=== PATIENT | female | born 1955 | race Two or more races ===

== ENCOUNTER 2016-09-23 08:51 | Day surgery (SDC) | payer OTHER ==
[2016-09-20 15:14] VITALS: BMI 32.2
[2016-09-23] VITALS (11 sets, daily range): BP systolic 108–145; BP diastolic 54–71; PULSE 60–93; RESP 15–22; Ht 157.5 cm; Wt 75.7 kg
[~2016-09-23] VITALS: Ht 157.5 cm; Wt 75.7 kg
[~2016-09-23 08:51] MED LIST: BUPIVACAINE 0.25% (MPF) 30 ML INJ INJ ONE; CEFAZOLIN 1 GM INJ ONE; CEFAZOLIN 2 GM/50 ML (PMX) 50 ML IVPB SCH; SOD CHLORIDE 0.9% 1,000 ML IV SCH
[2016-09-23] MEDS ORDERED: LISI10TA2 PO (09:35)
[2016-09-23] MEDS ORDERED: TERB250T46 PO (09:36)
[2016-09-23] MEDS ORDERED: AMIT25TA9 PO (09:36)
[2016-09-23] MEDS ORDERED: NITR0.4T6 SL (09:37)
[2016-09-23] MEDS ORDERED: ROCURONIUM 50 MG INJ ONE (11:26)
[2016-09-23] MEDS ORDERED: PROPOFOL 20 ML ONE (11:26)
[2016-09-23] MEDS ORDERED: ROPIVACAINE 0.5 % 30 ML VIAL ONE (11:27)
[2016-09-23] MEDS ORDERED: MIDAZOLAM 1 MG/ML 2 ML INJ ONE (11:27)
[2016-09-23] MEDS ORDERED: FENTAnyl 50 MCG/ML VIAL ONE (11:27)
--- NOTE | 2016-09-23 11:43 | RADRPT ---
PROCEDURE: Chest 1 views. CLINICAL INDICATION: Shortness of breath. TECHNIQUE: AP views of the chest was obtained. COMPARISON: None. FINDINGS: The heart is large. The lungs are hyperexpanded. Minimal elevation of the right hemidiaphragm is ob served. No consolidations are identified. No pneumothorax is seen. Calcified granulomas are seen in the left upper lobe. Osseous structures are intact. IMPRESSION: Cardiomegaly . Mild elevation of the right hemidiaphragm. Hyperexpanded lungs. Calcified granulomatous disease in the left upper lobe. RPTAT: AA .Alphonso Deal MD, Date Time Electronically viewed and signed by .Alphonso Deal MD, on 09/23/2016 11:43 .P/
[2016-09-23] MEDS ORDERED: BUPIVACAINE 0.25% (MPF) 30 ML INJ ONE (12:23)
[2016-09-23] MEDS ORDERED: KETOROLAC 30 MG INJ ONE (13:35)
[2016-09-23] MEDS ORDERED: NEOSTIGMINE 3 MG/3 ML SYRINGE ONE (13:35)
[2016-09-23] MEDS ORDERED: DEXAMETHASONE 4 MG/ML 1 ML INJ ONE (13:35)
[2016-09-23] MEDS ORDERED: GLYCOPYRROLATE 0.4 MG INJ ONE (13:35)
[2016-09-23] MEDS ORDERED: ONDANSETRON 4 MG INJ ONE (13:35)
[2016-09-23] MEDS ORDERED: METOCLOPRAMIDE 10 MG INJ ONE (13:35)
[2016-09-23] MEDS ORDERED: DIPHENHYDRAMINE 50 MG INJ IV PRN (14:00)
[2016-09-23] MEDS ORDERED: ONDANSETRON 4 MG INJ IV PRN (14:00)
[2016-09-23] MEDS ORDERED: morphine (1 MG/ML) 10ML SYRINGE IV PRN ×3 (14:00)
[2016-09-23] MEDS ORDERED: MEPERIDINE 25 MG INJ IV PRN (14:00)
[2016-09-23] MEDS ORDERED: OXYCODONE/ACETAMINOPHEN (5/325) TAB PO PRN (14:00)
[2016-09-23] MEDS ORDERED: LABETALOL HCL 20MG INJ IV PRN (14:00)
[2016-09-23] MEDS ORDERED: hydrALAzine 20 MG INJ IV PRN (14:00)
[2016-09-23] MEDS ORDERED: METOCLOPRAMIDE 10 MG INJ IV PRN (14:00)
[2016-09-23] MEDS ORDERED: HYDROCODONE/APAP (5/325) TAB PO ONE (14:00)
[2016-09-23] MEDS ORDERED: EPHEDrine SULFATE 50 MG/5 ML SYG IV PRN (14:00)
[2016-09-23] MEDS ORDERED: HYDROmorphONE (0.2 MG/ML) 10ML SYG IV PRN ×3 (14:00)
--- NOTE | 2016-09-23 14:12 | OPR ---
Date/Time of Note Date/Time of Note DATE: 09/23/16 TIME: 14:11 Operative Report Procedure Date: September 23, 2016 Preoperative Diagnosis incarcerated ventral hernia Postoperative Diagnosis incarcerated ventral hernia Operation Performed lap incarcerated ventral hernia repair with mesh ventralight st 10x15 cm Surgeon: Brandon LYONS Complications: None Brandon LYONS September 23, 2016 14:12
--- NOTE | 2016-09-23 18:06 | OPR ---
DATE OF OPERATION: 09/23/2016 INDICATION: This is a 61-year-old female with incarcerated ventral hernia. She requests surgical r epair. Risks, alternatives, benefits, and personnel were discussed with the patient. Patient expre ssed understanding and consents to the operation. PREOPERATIVE DIAGNOSIS: Incarcerated ventral hernia. POSTOPERATIVE DIAGNOSIS: Incarcerated ventral hernia. OPERATION PERFORMED: Laparoscopic incarcerated ventral hernia repair with 10 x [address] m esh. SURGEON: Roxanna Cat MD CONSERVATOR ARTIFACTS: Lavern Morillo MD SPECIMENS: None. COMPLICATIONS: None. ANESTHESIA: General. PROCEDURE: The patient was taken to the OR and prepped and draped in the usual sterile fashion. Sauer rgical timeout was performed. IV antibiotics were given. Left upper quadrant 5 mm incision is made with a 15 blade. Using a 5 mm optical trocar, optical entry was performed. Pneumoperitoneum was e stablished. Left flank 12 mm optical trocar and left lower quadrant 5 mm optical trocars are placed under direct visualization. Upon initial inspection, there was incarcerated contents into the vent ral hernia. This was reduced laparoscopically, and reduced and excised with laparoscopic Harmonic s hears. The defect is identified. This is closed with interrupted #1 Prolene using Endoclose and la paroscopic techniques. Underlay mesh with approximately 4 to 5 cm of coverage in all directions was placed with SecureStrap with Ventralex ST 10 x 15 cm mesh. There is good hemostasis. Ports are re moved under direct visualization. Skin was closed using skin mahnaz. Local anesthesia was injecte d. Dry dressings were applied. Dictated By: ROXANNA LANGE/KELLI Conf#: [id number] DID#: [id number]
[2016-09-23] MEDS ORDERED: OLANZAPINE 2.5 MG TAB GTB SCH (21:00)
--- NOTE | 2016-09-24 14:11 | RADRPT ---
Vent Rate: 56 bpm RR Interval: 0 msec IN Interval: 148 msec QRS Duration: 90 msec QT Interval: 470 msec QTC Interval: 453 msec P-R-[place]: 39 - 77 - 38 degrees Sinus bradycardia Otherwise normal ECG Electronically Signed By: Wil Jimenez [id number]
== END 2016-09-23 15:47 | disposition home or self-care (01) ==
LOC: SDS 08:51
PROVIDERS: ATTEND Surgery
DX: K43.6 Other and unspecified ventral hernia with obstruction, without gangrene (principal); I10 Essential (primary) hypertension
CPT/HCPCS: 49653; 71010; 93005; C1781; J0690; J1100; J1885; J2250; J2405; J2765; J2795; J3010; Z7512; Z7610; J2710